=== PATIENT | female | born 1950 | race Caucasian/White ===

== ENCOUNTER 2018-07-18 09:19 | Emergency (ER) | payer OTHER | END 2018-07-18 10:51 | disposition home or self-care (01) | LOC: FTE 09:19 | DX: J40 Bronchitis, not specified as acute or chronic (principal); J30.9 Allergic rhinitis, unspecified; I10 Essential (primary) hypertension; Z79.82 Long term (current) use of aspirin | CPT/HCPCS: 71046; 99283-25 ==